=== PATIENT | female | born 1960 | race Caucasian/White ===

== ENCOUNTER 2019-05-07 19:34 | Emergency (ER) | payer MEDICAID ==
[~2019-05-07] VITALS: Ht 167.6 cm; Wt 140.6 kg
[2019-05-07] MEDS ORDERED: PROAIR HFA8.5 GM (19:48)
[2019-05-07] MEDS ORDERED: ADVAIR HFA 230M12 GM INH (19:48)
[2019-05-07] MEDS ORDERED: NORVASC2.5 MG PO (19:49)
[2019-05-07] MEDS ORDERED: PAXIL10 MG PO ×2 (19:49→19:52)
[2019-05-07] MEDS ORDERED: NEURONTIN 400400 M1 PO (19:50)
[2019-05-07] MEDS ORDERED: DILANTIN100 MG PO (19:50)
[2019-05-07] MEDS ORDERED: WELLBUTRIN SR150 MG PO (19:51)
[2019-05-07] MEDS ORDERED: ZANTAC 150MG T150 MG PO (19:51)
[2019-05-07] MEDS ORDERED: LOVASTATIN 20 M20 MG PO (19:51)
[2019-05-07] MEDS ORDERED: FLEXERIL PO (19:52)
[2019-05-07] MEDS ORDERED: NAPROSYN500 MG PO (19:52)
[2019-05-07] MEDS ORDERED: LISINOPRIL40 MG PO (19:52)
[2019-05-07] MEDS ORDERED: METFORMIN HCL500 MG PO (19:53)
[2019-05-07 21:11] VITALS: BP 136/68
== END 2019-05-07 21:11 | disposition home or self-care (01) ==
LOC: M.ERS 19:34
DX: S00.83XA Contusion of other part of head, initial encounter (principal); S19.80XA Other specified injuries of unspecified part of neck, initial encounter; I10 Essential (primary) hypertension; E78.00 Pure hypercholesterolemia, unspecified; J44.9 Chronic obstructive pulmonary disease, unspecified; E11.9 Type 2 diabetes mellitus without complications; Z88.0 Allergy status to penicillin; Z88.8 Allergy status to other drugs, medicaments and biological substances; Z88.2 Allergy status to sulfonamides; W10.9XXA Fall (on) (from) unspecified stairs and steps, initial encounter; Y92.89 Other specified places as the place of occurrence of the external cause; Y93.89 Activity, other specified; Y99.8 Other external cause status